=== PATIENT | male | born 1985 | race Two or more races ===

== ENCOUNTER 2024-10-06 23:27 | Inpatient (IN) | payer MEDICAID ==
[~2024-10-06] VITALS: Ht 160 cm; Wt 74.3 kg
[2024-10-07] MEDS: SODIUM CHLORIDE 0.9% 1,000 ML IV ONE
--- NOTE | 2024-10-07 00:06 | ED.PDOC ---
GI ASSESSMENT HPI Comments 39-year-old male came to ER due to abdominal pain. Patient was diagnosed to have gallstones, has been having abdominal pain for the past 1-1/2 months. Pain located at the epigastric/right upper quadrant, and associated with nausea and vomiting. Chief Complaint: Abdominal Pain Time Seen by MD: 00:05 Reviewed Notes: Nurses Notes Allergies: Coded Allergies: NO KNOWN ALLERGIES (Unverified , 10/07/24) Timing: Weeks Duration: Intermittent Prehospital treatment: None Quality: Aching Vomitus: Watery Stool: Normal Severity: Moderate Recent: None Recent Hx of: Other (Gallstones) Pain Location: Epigastric, RUQ Modifying Factors: Nothing Associated sign and symptoms: Nausea, Vomiting, Abdominal Pain Past Medical History PAST MEDICAL HISTORY: Gallstones Surgical History: Denies all surgeries Surgical History (Other): Right ankle surgery Family History Family History: Reviewed,noncontributory to illness Social History Smoker: Non-Smoker Alcohol: Denies ETOH Use Drugs: Denies Drug Use Lives In: Home Constitutional: denies: chills, diaphoresis, fatigue, fever, malaise, sweats, weakness, others EENTM: denies: blurred vision, double vision, ear bleeding, ear discharge, ear drainage, ear pain, ear ringing, eye pain, eye redness, hearing loss, mouth pain, mouth swelling, nasal discharge, nose bleeding, nose congestion, nose pain, photophobia, tearing, throat pain, throat swelling, voice changes, others Respiratory: denies: cough, hemoptysis, orthopnea, SOB at rest, shortness of breath, SOB with excertion, stridor, wheezing, others Cardiovascular: denies: chest pain, dizzy spells, diaphoresis, Dyspnea on exertion, edema, irregular heart beat, left arm pain, lightheadedness, palpitations, PND, syncope, others Gastrointestinal: reports: abdominal pain, nausea, vomiting; denies: abdomen distended, blood streaked bowels, constipated, diarrhea, dysphagia, difficulty swallowing, hematemesis, melena, poor appetite, poor fluid intake, rectal bleeding, rectal pain, others Genitourinary: denies: burning, dysuria, flank pain, frequency, hematuria, incontinence, penile discharge, penile sore, pain, testicle pain, testicle swelling, urgency, others Neurological: denies: dizziness, fainting, headache, left sided numbness, left sided weakness, numbness, paresthesia, pre-existing deficit, right sided numbness, right sided weakness, seizure, speech problems, tingling, tremors, weakness, others Musculoskeletal: denies: back pain, gout, joint pain, joint swelling, muscle pain, muscle stiffness, neck pain, others Integumetry: denies: bruises, change in color, change in hair/nails, dryness, laceration, lesions, lumps, rash, wounds, others Allergic/Immunocompromised: denies: Difficulty Healing, Frequent Infections, Hives, Itching, others Hematologic/Lymphatic: denies: anemia, blood clots, easy bleeding, easy bruising, swollen glands, others Endocrine: denies: excessive hunger, excessive sweating, excessive thirst, excessive urination, flushing, intolerance to cold, intolerance to heat, unexplained weight gain, unexplained weight loss, others Psychiatric: denies: anxiety, bipolar disorder, depression, hopeless, panic disorder, schizophrenia, sleepless, suicidal, others Physical Exam General Appearance: No Apparent Distress, Normal HEENT: Normal ENT Inspection, Pharynx Normal, TMs Normal Neck: Full Range of Motion, Non-Tender, Normal, Normal Inspection Respiratory: Chest Non-Tender, Lungs Clear, No Accessory Muscle Use, No Respiratory Distress, Normal Breath Sounds Cardiovascular: No Edema, No JVD, No Murmur, No Gallop, Normal Peripheral Pulses, Regular Rate/Rhythm Breast Exam: Deferred Gastrointestinal: Epigastric, No Organomegaly, No Pulsatile Mass, Normal Bowel Sounds, RUQ, Soft, Tenderness Genitalia: Deferred Pelvic: Deferred Rectal: Deferred Extremities: No calf tenderness, Normal capillary refill, Normal inspection, Normal range of motion, Non-tender, No pedal edema Musculoskeletal : Apperance: Normal Neurologic: Alert, information assurance analyst II-XII nml as Tested, No Motor Deficits, Normal Affect, Normal Mood, No Sensory Deficits Cerebellar Function: Normal Reflexes: Normal Skin: Dry, Normal Color, Warm Lymphatic: No Adenopathy Was a procedure done? Was a procedure done?: No GI differential Dx Differential Diagnosis: Cholangitis, Cholecystitis, Diverticular disease, Gastritis/PUD, Gastroenteritis, Pancreatitis, UTI, Urolithiasis, Food Poisoning X-Ray, Labs, Meds, VS Vital Signs Date Time Temp Pulse Resp B/P (MAP) Pulse Ox O2 Delivery O2 Flow Rate FiO2 10/06/24 23:56 98.0 77 20 130/93 (105) 99 Lab Test 10/07/24 00:17 10/06/24 23:55 Range/Units White Blood Count 15.1 H 4.4-10.8 10^3/uL Red Blood Count 4.83 4.5-5.90 10^6/uL Hemoglobin 15.9 13.5-17.5 g/dL Hematocrit 44.8 41.0-53.0 % Mean Corpuscular Volume 92.7 80.0-100.0 fL Mean Corpuscular Hemoglobin 32.9 H 28.0-32.0 pg Mean Corpuscular Hemoglobin Concent 35.5 32.0-36.0 g/dL Red Cell Distribution Width 13.0 11.8-14.3 % Platelet Count 265 140-450 10^3/uL Mean Platelet Volume 7.7 6.9-10.8 fL Neutrophils (%) (Auto) 72.4 37.0-80.0 % Lymphocytes (%) (Auto) 18.8 10.0-50.0 % Monocytes (%) (Auto) 7.5 0.0-12.0 % Eosinophils (%) (Auto) 0.5 0.0-7.0 % Basophils (%) (Auto) 0.8 0.0-2.0 % Neutrophils # (Auto) 11.0 H 1.6-8.6 10 ^3/uL Lymphocytes # (Auto) 2.8 0.4-5.4 10 ^3/uL Monocytes # (Auto) 1.1 0-1.3 10 ^3/uL Eosinophils # (Auto) 0.1 0-0.8 10 ^3/uL Basophils # (Auto) 0.1 0-0.2 10 ^3/uL Nucleated Red Blood Cells 0.0 % Sodium Level 144 136-145 mmol/L Potassium Level 3.4 L 3.5-5.1 mmol/L Chloride Level 108 H 98-107 mmol/L Carbon Dioxide Level 26 20-31 mmol/L Anion Gap 10 5-15 Blood Urea Nitrogen 26 H 9-23 mg/dL Creatinine 1.10 0.700-1.30 mg/dL Glomerular Filtration Rate Calc 86 >90 mL/min BUN/Creatinine Ratio 23.6 H 10.0-20.0 Serum Glucose 116 H 74-106 mg/dL Calcium Level 9.7 8.7-10.4 mg/dL Total Bilirubin 2.5 H 0.2-1.0 mg/dL Aspartate Amino Transferase (AST) 130 H 13-40 U/L Alanine Aminotransferase (ALT) 88 H 7-40 U/L Alkaline Phosphatase 58 46-116 U/L Total Protein 7.4 5.7-8.2 g/dL Albumin 4.5 3.2-4.8 g/dL Lipase 51 12-53 U/L Urine Color Yellow Yellow Urine Clarity Clear Clear Urine pH 7.0 5.0-9.0 Urine Specific [place] 1.032 1.001-1.035 Urine Protein Trace H Negative Urine Ketones Trace Negative Urine Blood Negative Negative /uL Urine Nitrite Negative Negative Urine Bilirubin Negative Negative Urine Urobilinogen 6 Negative mg/dL Urine Leukocyte Esterase Negative Negative /uL Urine RBC 1 0 - 3 /hpf Urine WBC <1 0 - 3 /hpf Urine Squamous Epithelial Cells Few <5 /hpf Urine Bacteria None seen None Seen /hpf Urine Mucus Few None Seen Urine Glucose Normal Normal mg/dL Current Medications Medications (Trade) Dose Ordered Sig/Billy Route Start Time Stop Time Status Last Admin Pantoprazole Sodium (Protonix) 40 mg ONCE ONCE IV 10/07/24 00:00 10/07/24 00:01 DC 10/07/24 00:59 Sodium Chloride 1,000 ml @ 1,000 mls/hr Q1H ONCE IV 10/07/24 00:00 10/07/24 00:59 DC 10/07/24 00:00 Ondansetron HCl (Zofran) 4 mg ONCE ONCE IV 10/07/24 00:00 10/07/24 00:01 DC 10/07/24 01:00 Time of 1ST Reevaluation: 00:02 Reevaluation 1ST: Unchanged Patient Education/Counseling: Diagnosis, Treatment Family Education/Counseling: No Family Present Departure 1 Departure Time of Disposition: 02:04 (Patient presented with abdominal pain that was concerning for possible appendicits, gastritis, cholecystitis, colitis, gastroenteritis, sbo, or orther possible surgical emergency. Data: 1. I ordered and reviewed the result of at least 3 labs including a CBC, BMP, and Urinalysis. 2. I independently interpreted the following tests: Ultrasound of the gallbladder is benign.Risk:This patient has a high risk of morbidity due to further diagnostic testing or treatment and may suffer from an acute abdominal process disorder. Workup reveals intractable abdominal pain concerning for possible gastritis. We will admit patient for further workup. and patient should be admitted for further workup. and possible expert consultation. ) Impression: Primary Impression: Intractable abdominal pain Disposition: ADMITTED INPATIENT Admit to: Med Surg Condition: Serious Critical Care Note Critical Care Time?: Yes Critical care comment: Intractable abdominal pain Authorized and Performed by: Sena Wilson MD Total critical care time: Approximately 36 minutes Due to a high probability of clinically significant, life threatening deterioration, the patient required my highest level of preparedness to intervene emergently and I personally spent this critical care time directly and personally managing the patient. This critical care time included obtaining a history; examining the patient; pulse oximetry; ordering and review of studies; arranging urgent treatment with development of a management plan; evaluation of patient's response to treatment; frequent reassessment; and, discussions with other providers. This critical care time was performed to assess and manage the high probability of imminent, life-threatening deterioration that could result in multi-organ failure. It was exclusive of separately billable procedures and treating other patients and teaching time. Please see my other sections and the rest of the note for further information on patient assessment and treatment. Stability Stability form required: No Heart Score Heart Score: Heart Score Response (Comments) Value History N/A 0 EKG N/A 0 Age N/A 0 Risk Factors N/A 0 Troponin N/A 0 Total 0 I personally scribed for SENA WILSON MD ([email or web address]) on 10/07/24 at 00:06. Electronically submitted by Hang Sommer ([email or web address]). SENA WILSON MD Oct 07, 2024 00:06
[2024-10-07 00:08] LABS: Urine Bacteria None Seen /hpf (None Seen)
[2024-10-07 00:21] LABS: Urine Blood Negative /uL (Negative); Urine Clarity Clear (Clear); Urine Color Yellow (Yellow); Urine Mucus FEW (None Seen); Urine Protein, UAD TRACE (Negative); Urine Specific Gravity 1.032 (1.001-1.035); Urine Urobilinogen 6 mg/dL (Negative); Urine WBC <1 /hpf (0 - 3)
[2024-10-07 00:30] LABS: Basophils # (auto) 0.1 10 ^3/uL (0-0.2); Basophils % (auto) 0.8 % (0.0-2.0); Eosinophils # (auto) 0.1 10 ^3/uL (0-0.8); Eosinophils % (auto) 0.5 % (0.0-7.0); Hematocrit 44.8 % (41.0-53.0); Hemoglobin 15.9 g/dL (13.5-17.5); Lymphocytes # (auto) 2.8 10 ^3/uL (0.4-5.4); Lymphocytes % (auto) 18.8 % (10.0-50.0); Mean Corpuscular Hemoglobin 32.9 pg (28.0-32.0); Mean Corpuscular Hgb Conc. 35.5 g/dL (32.0-36.0); Mean Corpuscular Volume 92.7 fL (80.0-100.0); Monocytes # (auto) 1.1 10 ^3/uL (0-1.3); Monocytes % (auto) 7.5 % (0.0-12.0); Neutrophils % (auto) 72.4 % (37.0-80.0); Platelet Count (auto) 265 10^3/uL (140-450); Red Blood Cells 4.83 10^6/uL (4.5-5.90); White Blood Cell 15.1 10^3/uL (4.4-10.8)
[2024-10-07 00:46] LABS: Alanine Aminotransferase 88 U/L (7-40); Albumin 4.5 g/dL (3.2-4.8); Alkaline Phosphatase 58 U/L (46-116); Anion Gap 10 (5-15); Aspartate Aminotransferase 130 U/L (13-40); BUN/Creatinine Ratio 23.6 (10.0-20.0); Blood Urea Nitrogen 26 mg/dL (9-23); Calcium 9.7 mg/dL (8.7-10.4); Carbon Dioxide 26 mmol/L (20-31); Chloride 108 mmol/L (98-107); Glucose 116 mg/dL (74-106); Lipase 51 U/L (12-53); Potassium 3.4 mmol/L (3.5-5.1); Sodium 144 mmol/L (136-145)
[2024-10-07 00:47] LABS: Bilirubin, Total 2.5 mg/dL (0.2-1.0); Total Protein 7.4 g/dL (5.7-8.2)
[2024-10-07] MEDS: PANTOPRAZOLE 40 MG/10 ML VIAL INJ IV ONE (00:59)
[2024-10-07] MEDS: ONDANSETRON HCL 4 MG/2 ML VIAL IV ONE (01:00)
--- NOTE | 2024-10-07 01:10 | DVH ---
EXAM: XY CHEST TWO VIEWS ROUTINE CLINICAL HISTORY: ruq abdominal pain TECHNIQUE: PA and lateral views of the chest WID: COMPARISON: None FINDINGS: Lines and tubes: None. There are tiny radiopaque densities projecting over the right lower chest and right upper abdomen which may be BB fragments Chest: The heart size and pulmonary vasculature is within normal limits. No pleural effusion, pneumothorax, or consolidation. The osseous structures are grossly intact. IMPRESSION: No acute cardiopulmonary abnormality.
--- NOTE | 2024-10-07 01:30 | DVH ---
ABDOMINAL ULTRASOUND CLINICAL HISTORY: ruq pain TECHNIQUE: Multiple grayscale and color Doppler ultrasound images were obtained of the abdomen. WID: COMPARISON: None FINDINGS: Liver and Biliary System: Borderline Increased echogenicity, normal size measuring 13.9 cm. No foca l hepatic observations. No intrahepatic bile duct dilatation. The common duct is not visualized . Th e gallbladder is normal in caliber without cholelithiasis or wall thickening.. Pancreas: Not well visualized due to overlying bowel gas Kidneys: The right kidney is 9.1 cm . No hydronephrosis, increased echogenicity, shadowing stone, o r focal lesion. IMPRESSION: 1. Unremarkable appearance of the gallbladder. 2. Borderline hepatic steatosis
[2024-10-07] MEDS: MORPHINE SULFATE 4 MG/ML SYR/VIAL IV ONE ×2 (02:49→04:15)
[2024-10-07 05:44] VITALS: BP 119/77; PULSE 56; RESP 18; TEMP 97.9; O2SAT 99
[2024-10-07] MEDS ORDERED: IBUPROFEN 600 MG TAB PO PRN (06:15)
[2024-10-07] MEDS ORDERED: DOCUSATE SOD 100 MG CAP PO PRN (06:15)
[2024-10-07] MEDS ORDERED: ONDANSETRON HCL 4 MG/2 ML VIAL IV PRN (06:15)
[2024-10-07] MEDS ORDERED: MORPHINE SULFATE INJ 2 MG/ml SYRG IV PRN ×2 (06:15→06:45)
--- NOTE | 2024-10-07 06:41 | DVHHP2 ---
History of Present Illness Reason for Visit: Acute abdominal pain History of Present Illness The patient is a 39-year-old male with past medical history of gallstones who presented to [facility] ED with complaint of acute abdominal pain. Patient reports symptoms progressively get worse with localized epigastric abdo saeed pain, right upper quadrant pain, associated nausea, vomiting, getting worse today that prompted this visit. Patient reports he has been diagnosed to have gallstones, has been having abdominal pain for the past 1-1/2 months. Patient was seen and evaluated in the ED, laboratory data shows WBC 15.1, platelets 265, sodium 144, potassium 3.4, BUN 26, creatinine 1.10, glucose 116, total bilirubin 2.5, AST 130, ALT 88, blood pressure 119/77, heart rate 70, temperature 97.9 F, O2 saturation 99% on room air. Gallbladder ultrasound revealing unremarkable appearance of the gallbladder; borderline hepatic steatosis. Please see medication orders section in the computer. On my assessment, patient denied chest pain, no headache, no dizziness, no diaphore sis, no shortness of breath, no abdominal pain, nausea or vomiting at this moment, no fever, no chills. No other modifying factor or other associated signs and symptoms noted. Patient was admitted for further evaluation and medical management. Past Medical History Gallstones Past Surgical History Right ankle surgery Family History Reviewed, noncontributory to the management of this case. Past Social History The patient lives at home, denies smoking, alcohol or illicit drugs abuse. Review of Systems Constitutional: No: Fever, Chills, Sweats, Weakness, Malaise, Other Eyes: No: Pain, Vision change, Conjunctivae inflammation, Eyelid inflammation, Other, Redness ENT: No: Ear pain, Ear discharge, Nose pain, Nose discharge, Nose congestion, Mouth pain, Mouth swelling, Throat pain, Throat swelling, Other Respiratory: No: Cough, Dry, Shortness of breath, SOB with excertion, Wheezing, Hemoptysis, Pleuritic Pain, Sputum, Wheezing, Other Cardiovascular: No: Chest Pain, Palpitations, Orthopnea, Paroxysmal Noc. Dyspnea, Edema, Lt Headedness, Other Gastrointestinal: Nausea, Vomiting, Abdominal Pain; No: Diarrhea, Constipation, Melena, Hematochezia, Other Genitourinary: No Dysuria, No Frequency, No Incontinence, No Hematuria, No Retention, No Other Musculoskeletal: No: other, neck pain, shoulder pain, arm pain, back pain, hand pain, leg pain, foot pain Skin: No: Rash, Lesions, Jaundice, Bruising, Other Neurological: No: Weakness, Numbness, Incoordination, Change in speech, Confusion, Seizures, Other Allergies: Coded Allergies: NO KNOWN ALLERGIES (Unverified , 10/07/24) Medications Current Medications Medications Dose Ordered Sig/Billy Route Start Time Stop Time Status Last Admin Dose Admin Pantoprazole Sodium 40 mg DAILY IV 10/07/24 10:00 Ceftriaxone Sodium 50 ml @ 100 mls/hr DAILY@0600 IV 10/08/24 06:00 Ibuprofen 600 mg Q6HP PRN PO 10/07/24 06:15 Sodium Chloride 10 ml Q8HR IV 10/07/24 14:00 Acetaminophen/ Hydrocodone Bitart 1 tab Q4HP PRN PO 10/07/24 06:15 Ondansetron HCl 4 mg Q4HP PRN IV 10/07/24 06:15 Docusate Sodium 100 mg BIDPRN PRN PO 10/07/24 06:15 Morphine Sulfate 2 mg Q4HPRN PRN IV 10/07/24 06:15 Exam Vital Signs Vital Signs Date Time Temp Pulse Resp B/P (MAP) Pulse Ox O2 Delivery O2 Flow Rate FiO2 10/07/24 05:44 97.9 56 18 119/77 (91) 99 97.9 10/07/24 02:40 Room Air General Appearance: Alert, Oriented X3, Cooperative, No acute distress HEENT: Atraumatic, PERRLA, EOMI, Mucous membr. moist/pink Respiratory: Clear to auscultation, Normal air movement Cardiovascular: Regular rate, Normal S1, Normal S2, No murmurs Abdominal: Normal bowel sounds, Soft, No hepatospenomegaly, No masses, Other (Reports tenderness) Extremities: No clubbing, No cyanosis, No edema, Normal pulses, No tenderness/swelling Skin: No rashes, No breakdown, No significant lesion Neuro: Normal gait, Normal speech, Strength at 5/5 X4 ext, Normal tone, Sensation intact, Cranial nerves 3-12 NL, Reflexes 2+ Psych/Mental Status: Mental status NL, Mood NL Labs/Xrays Labs Test 10/07/24 00:17 10/06/24 23:55 Range/Units White Blood Count 15.1 H 4.4-10.8 10^3/uL Red Blood Count 4.83 4.5-5.90 10^6/uL Hemoglobin 15.9 13.5-17.5 g/dL Hematocrit 44.8 41.0-53.0 % Mean Corpuscular Volume 92.7 80.0-100.0 fL Mean Corpuscular Hemoglobin 32.9 H 28.0-32.0 pg Mean Corpuscular Hemoglobin Concent 35.5 32.0-36.0 g/dL Red Cell Distribution Width 13.0 11.8-14.3 % Platelet Count 265 140-450 10^3/uL Mean Platelet Volume 7.7 6.9-10.8 fL Neutrophils (%) (Auto) 72.4 37.0-80.0 % Lymphocytes (%) (Auto) 18.8 10.0-50.0 % Monocytes (%) (Auto) 7.5 0.0-12.0 % Eosinophils (%) (Auto) 0.5 0.0-7.0 % Basophils (%) (Auto) 0.8 0.0-2.0 % Neutrophils # (Auto) 11.0 H 1.6-8.6 10 ^3/uL Lymphocytes # (Auto) 2.8 0.4-5.4 10 ^3/uL Monocytes # (Auto) 1.1 0-1.3 10 ^3/uL Eosinophils # (Auto) 0.1 0-0.8 10 ^3/uL Basophils # (Auto) 0.1 0-0.2 10 ^3/uL Nucleated Red Blood Cells 0.0 % Sodium Level 144 136-145 mmol/L Potassium Level 3.4 L 3.5-5.1 mmol/L Chloride Level 108 H 98-107 mmol/L Carbon Dioxide Level 26 20-31 mmol/L Anion Gap 10 5-15 Blood Urea Nitrogen 26 H 9-23 mg/dL Creatinine 1.10 0.700-1.30 mg/dL Glomerular Filtration Rate Calc 86 >90 mL/min BUN/Creatinine Ratio 23.6 H 10.0-20.0 Serum Glucose 116 H 74-106 mg/dL Calcium Level 9.7 8.7-10.4 mg/dL Total Bilirubin 2.5 H 0.2-1.0 mg/dL Aspartate Amino Transferase (AST) 130 H 13-40 U/L Alanine Aminotransferase (ALT) 88 H 7-40 U/L Alkaline Phosphatase 58 46-116 U/L Total Protein 7.4 5.7-8.2 g/dL Albumin 4.5 3.2-4.8 g/dL Lipase 51 12-53 U/L Urine Color Yellow Yellow Urine Clarity Clear Clear Urine pH 7.0 5.0-9.0 Urine Specific [place] 1.032 1.001-1.035 Urine Protein Trace H Negative Urine Ketones Trace Negative Urine Blood Negative Negative /uL Urine Nitrite Negative Negative Urine Bilirubin Negative Negative Urine Urobilinogen 6 Negative mg/dL Urine Leukocyte Esterase Negative Negative /uL Urine RBC 1 0 - 3 /hpf Urine WBC <1 0 - 3 /hpf Urine Squamous Epithelial Cells Few <5 /hpf Urine Bacteria None seen None Seen /hpf Urine Mucus Few None Seen Urine Glucose Normal Normal mg/dL PATIENT: MANOLO BRIGHTACCT: [id number] UNIT: [id number] : 1985 LOC: ER ROOM / BED: / AGE / SEX: 39 / M ADM STATUS: REG ER SERVICE [id number] ORDERING PHYSICIAN: SENA RIVERA MD PROCEDURE(s): GBUS - GALLBLADDER REASON: ruq pain ORDER NUMBER(s): [id number], ACCESSION NUMBER(s): [id number] ABDOMINAL ULTRASOUND CLINICAL HISTORY: ruq pain TECHNIQUE: Multiple grayscale and color Doppler ultrasound images were obtained of the abdomen. WID: COMPARISON: None FINDINGS: Liver and Biliary System: Borderline Increased echogenicity, normal size measuring 13.9 cm. No focal hepatic observations. No intrahepatic bile duct dilatation. The common duct is not visualized. The gallbladder is normal in caliber without cholelithiasis or wall thickening.. Pancreas: Not well visualized due to overlying bowel gas Kidneys: The right kidney is 9.1 cm. No hydronephrosis, increased echogenicity, shadowing stone, or focal lesion. IMPRESSION: 1. Unremarkable appearance of the gallbladder. 2. Borderline hepatic steatosis ORDERING PHYSICIAN: SENA RIVERA MD PROCEDURE(s): CXR2 - CHEST TWO VIEWS ROUTINE REASON: ruq abdominal pain ORDER NUMBER(s): [id number], ACCESSION NUMBER(s): [id number] EXAM: XY CHEST TWO VIEWS ROUTINE CLINICAL HISTORY: ruq abdominal pain TECHNIQUE: PA and lateral views of the chest WID: COMPARISON: None FINDINGS: Lines and tubes: None. There are tiny radiopaque densities projecting over the right lower chest and right upper abdomen which may be BB fragments Chest: The heart size and pulmonary vasculature is within normal limits. No pleural effusion, pneumothorax, or consolidation. The osseous structures are grossly intact. IMPRESSION: No acute cardiopulmonary abnormality. Assessment/Plan Assessment/Plan Intractable abdominal pain Hypokalemia Leukocytosis, unspecified Elevated liver enzymes Plan 1. Admit to med surge unit 2. Breathing treatment 3. Pain control management 4. IV antibiotic management 5. Management of fluids and electrolytes 6. Consultation for GI/hospitalist 7. Diagnostic test gallbladder ultrasound 8. DVT prophylaxis on SCDs 9. Repeat labs CBC, CMP in a.m. 10. Home medication reviewed and reconciled 11. Continue with current medical management 12. Treatment plan discussed with patient and RN. Patient verbalized understanding. Plan discussed with: Patient, Other (RN) My Orders Orders - REINA RM DNP Procedure Category Date Status Time Complete Blood Count LAB 10/07/24 Logged 06:01 Comprehensive LAB 10/07/24 Logged Metabolic Panel 06:01 Pantoprazole PHA 10/07/24 In Process (Protonix) 10:00 Blood Culture SHAILA 10/07/24 Logged 06:01 Ceftriaxone 1gm/50ml PHA 10/07/24 In Process D5w (Rocephin) 06:15 Ibuprofen Tablet PHA 10/07/24 In Process (Motrin Tablet) 06:15 Allergies KIRA 10/07/24 In Process 06:01 Code Status CODE 10/07/24 Transmitted 06:01 Sodium Chloride Lock PHA 10/07/24 In Process (Saline Lock Ns) 14:00 Oxygen Per Hour RT 10/07/24 Transmitted 06:01 Hydrocodone-Acet PHA 10/07/24 In Process 5/325mg Tab ([place] 06:15 Ondansetron Hcl PHA 10/07/24 In Process (Zofran) 06:15 Docusate Sodium PHA 10/07/24 In Process Capsule (Colace 06:15 Complete Blood Count LAB 10/08/24 Verified 04:00 Comprehensive LAB 10/08/24 Verified Metabolic Panel 04:00 Condition: Fair KIRA 10/07/24 In Process 06:01 Clear Liq Diet DIET 10/07/24 Transmitted Breakfast Bedrest With Bathroom KIRA 10/07/24 In Process Privileg 06:01 Morphine Sulfate [facility] 10/07/24 In Process Injection 06:15 Sequential [facility] 10/07/24 In Process Compression Device Ceftriaxone 1gm/50ml [facility] 10/08/24 In Process D5w (Rocephin) 06:00 Problem List: (1) Intractable abdominal pain (2) Hypokalemia (3) Leukocytosis, unspecified (4) Elevated liver enzymes Date of Service: Oct 07, 2024 Billing Provider: REINA RM DNP Common Visit Codes: [id number] INP/OBS CARE (HIGH) REINA RM DNP Oct 07, 2024 06:41
[2024-10-07] MEDS ORDERED: NITROGLYCERIN 0.4 MG SL TAB SL PRN (06:45)
[2024-10-07 06:55] LABS: Basophils # (auto) 0 10 ^3/uL (0-0.2); Basophils % (auto) 0.1 % (0.0-2.0); Eosinophils # (auto) 0 10 ^3/uL (0-0.8); Hematocrit 43.9 % (41.0-53.0); Hemoglobin 15.4 g/dL (13.5-17.5); Lymphocytes # (auto) 0.6 10 ^3/uL (0.4-5.4); Lymphocytes % (auto) 6.2 % (10.0-50.0); Mean Corpuscular Hemoglobin 33.3 pg (28.0-32.0); Monocytes # (auto) 0.6 10 ^3/uL (0-1.3); Monocytes % (auto) 6.6 % (0.0-12.0); Neutrophils # (auto) 8.5 10 ^3/uL (1.6-8.6); Neutrophils % (auto) 87.1 % (37.0-80.0); Platelet Count (auto) 256 10^3/uL (140-450); Red Blood Cells 4.63 10^6/uL (4.5-5.90); Red Cell Distribution Width 13.2 % (11.8-14.3); White Blood Cell 9.7 10^3/uL (4.4-10.8)
[2024-10-07] MEDS: cefTRIAXone 1GM/50ML D5W 50 ML IV ONE (06:59)
[2024-10-07] MEDS: POTASSIUM CHL 20 Meq TABLET PO ONE (06:59)
[2024-10-07 07:08] LABS: Alanine Aminotransferase 366 U/L (7-40); Albumin 4.4 g/dL (3.2-4.8); Alkaline Phosphatase 65 U/L (46-116); Anion Gap 11 (5-15); Aspartate Aminotransferase 392 U/L (13-40); Bilirubin, Total 3.2 mg/dL (0.2-1.0); Blood Urea Nitrogen 25 mg/dL (9-23); Calcium 9.4 mg/dL (8.7-10.4); Carbon Dioxide 24 mmol/L (20-31); Chloride 110 mmol/L (98-107); Glucose 141 mg/dL (74-106); Potassium 3.8 mmol/L (3.5-5.1); Sodium 145 mmol/L (136-145); Total Protein 7.4 g/dL (5.7-8.2)
[2024-10-07 08:02] VITALS: BP 105/59; PULSE 59; RESP 16; TEMP 98.2; O2SAT 59
[2024-10-07] MEDS: PANTOPRAZOLE 40 MG/10 ML VIAL INJ IV SCH (10:00)
[2024-10-07] MEDS: HYDROcodone-ACET 5/325MG TAB PO PRN (11:18)
[2024-10-07 12:35] VITALS: BP 105/59; PULSE 63; TEMP 98.3; O2SAT 100
[2024-10-07] MEDS: SODIUM CHLOR 0.9% PF (SALINE LOCK) 10ML VIAL/SYR IV SCH (13:11)
--- NOTE | 2024-10-07 16:20 | DVHPN2 ---
Subjective Patient continues to complain of epigastric and right upper quadrant pain. Reviewed: Care Plan, H&P, Labs, Medications Changes from previous H/P or p: No Changes General: Per HPI Eyes: No Pain, No Vision change, No Conjunctivae inflammation, No Eyelid inflammation, No Other, No Redness ENT: No Ear pain, No Ear discharge, No Nose pain, No Nose discharge, No Nose congestion, No Mouth pain, No Mouth swelling, No Throat pain, No Throat swelling, No Other Cardiovascular: No Chest Pain, No Palpitations, No Orthopnea, No Paroxysmal Noc. Dyspnea, No Edema, No Lt Headedness, No Other Respiratory: No Cough, No Dry, No Shortness of breath, No SOB with excertion, No Wheezing, No Hemoptysis, No Pleuritic Pain, No Sputum, No Other Gastrointestinal: Nausea, Vomiting, Abdominal Pain; No Diarrhea, No Constipation, No Melena, No Hematochezia, No Other Genitourinary: No Dysuria, No Frequency, No Incontinence, No Hematuria, No Retention, No Other Musculoskeletal: No other, No neck pain, No shoulder pain, No arm pain, No back pain, No hand pain, No leg pain, No foot pain Skin: No Rash, No Lesions, No Jaundice, No Bruising, No Other Objective Vitals Vital Signs Date Time Temp Pulse Resp B/P (MAP) Pulse Ox O2 Delivery O2 Flow Rate FiO2 10/07/24 12:35 98.3 63 105/59 (74) 100 98.3 10/07/24 08:02 16 10/07/24 02:40 Room Air Intake/Output Intake and Output 10/07/24 07:00 Intake Total 1000 ml Balance 1000 ml Intake IV Total 1000 ml General Appearance: Alert, Oriented X3, Cooperative, mild distress HEENT: Atraumatic, PERRLA Lungs: Clear to auscultation, Normal air movement Cardiovascular: Normal S1, Normal S2 Abdomen: Normal bowel sounds, Soft, No tenderness Genitourinary: No Apparent Abnormalities Musculoskeletal: Normal sensory function, Normal motor function Extremities: No clubbing, No cyanosis Neuro: Normal gait, Normal speech Psych/Mental Status: Mental status NL, Mood NL Medications Current Medications Medications Dose Ordered Sig/Blily Route Start Time Stop Time Status Last Admin Dose Admin Pantoprazole Sodium 40 mg DAILY IV 10/07/24 10:00 10/07/24 10:00 40 MG Ceftriaxone Sodium 50 ml @ 100 mls/hr DAILY@0600 IV 10/08/24 06:00 Ibuprofen 600 mg Q6HP PRN PO 10/07/24 06:15 Sodium Chloride 10 ml Q8HR IV 10/07/24 14:00 10/07/24 13:11 10 ML Acetaminophen/ Hydrocodone Bitart 1 tab Q4HP PRN PO 10/07/24 06:15 10/07/24 11:18 1 TAB Ondansetron HCl 4 mg Q4HP PRN IV 10/07/24 06:15 Docusate Sodium 100 mg BIDPRN PRN PO 10/07/24 06:15 Morphine Sulfate 2 mg Q4HPRN PRN IV 10/07/24 06:15 Nitroglycerin 0.4 mg Q5MINP PRN SL 10/07/24 06:45 Morphine Sulfate 2 mg Q30M PRN IV 10/07/24 06:45 Laboratory Results Laboratory Tests 10/07/24 06:23 Chemistry Test 10/07/24 00:17 10/07/24 06:23 Albumin 4.5 g/dL (3.2-4.8) 4.4 g/dL (3.2-4.8) Calcium Level 9.7 mg/dL (8.7-10.4) 9.4 mg/dL (8.7-10.4) Total Protein 7.4 g/dL (5.7-8.2) 7.4 g/dL (5.7-8.2) Lipid panel Test 10/07/24 00:17 Lipase 51 U/L (12-53) LFT Test 10/07/24 00:17 10/07/24 06:23 Alanine Aminotransferase (ALT) 88 U/L (7-40) H 366 U/L (7-40) H Alkaline Phosphatase 58 U/L (46-116) 65 U/L (46-116) Aspartate Amino Transferase (AST) 130 U/L (13-40) H 392 U/L (13-40) H Total Bilirubin 2.5 mg/dL (0.2-1.0) H 3.2 mg/dL (0.2-1.0) H Urinalysis Test 10/06/24 23:55 Urine Color Yellow (Yellow) Urine Clarity Clear (Clear) Urine pH 7.0 (5.0-9.0) Urine Specific [place] 1.032 (1.001-1.035) Urine Protein Trace (Negative) H Urine Ketones Trace (Negative) Urine Blood Negative /uL (Negative) Urine Nitrite Negative (Negative) Urine Bilirubin Negative (Negative) Urine Urobilinogen 6 mg/dL (Negative) Urine Leukocyte Esterase Negative /uL (Negative) Urine RBC 1 /hpf (0 - 3) Urine WBC <1 /hpf (0 - 3) Urine Squamous Epithelial Cells Few /hpf (<5) Urine Bacteria None seen /hpf (None Seen) Urine Mucus Few (None Seen) Urine Glucose Normal mg/dL (Normal) Labs and/or images reviewed: Labs reviewed by me, Image(s) reviewed by me Assessment/Plan Assessment/Plan Impression: -rule out choledocholithiasis -transaminitis -patient reports history of cholelithiasis -leukocytosis, probable sirs Plan: -continue antibiotic therapy -MRCP -repeat labs in a.m. -pain management -continue clear liquid diet -discussed plan of care with the patient who is agreeable for MRI. Further course of care per findings. Total time spent with patient discussing and formulating plan of care: 35 minutes. This medical document was created using an electronic medical record system with [employer] dictation system. Although this document has been carefully reviewed, there may still be some phonetic and typographical errors. These areas are purely typographical due to imperfections of the software programs, and do not reflect any compromise in the patient's medical care. Plan discussed with: Patient, Other (RN) My Orders Orders - PATITO NAILS NP Procedure Category Date Status Time Mrcp Mri MRI 10/07/24 Logged 14:54 Date of Service: Oct 07, 2024 Billing Provider: PATITO NAILS NP Common Visit Codes: [id number] INP/OBS CARE(HIGH) PATITO NAILS NP Oct 07, 2024 16:20
[2024-10-07 16:43] VITALS: BP 120/77; PULSE 61; RESP 18; TEMP 98.1; O2SAT 99
[2024-10-07] MEDS: IOHEXOL 300 MG/ML 100ML BOTTLE IJ ONE (16:54)
--- NOTE | 2024-10-07 17:41 | DVH ---
Exam: CT CT AB PEL WITH IV CON ONLY History: Rule out Choledocholithiasis Comparison Study: None Technique: Multidetector spiral CT of the abdomen and pelvis was performed from lung bases to pubic symphysis. Imaging was performed without IV contrast. Axial, coronal and sagittal multiplanar reform ats were obtained from the axial data set by the technologist. Radiation dose : Abdomen/Pelvis: CTDIvol 10 mGy, DLP 565.18 mGy*cm. Findings: Evaluation of solid organs is limited due to lack of intravenous contrast use. Lung Bases: No acute or significant lung base finding. Normal heart size. No pleural or pericardial effusion. Liver: The liver is normal in size. No focal lesions. Gallbladder and biliary Tree: Suspect small calculi in the neck of the gallbladder. No intrahepatic o r extrahepatic biliary dilation. No definite choledocholithiasis. Spleen: Unremarkable Pancreas: The pancreas is grossly normal in appearance. Adrenal Glands: Unremarkable Kidneys: Subcentimeter right renal cyst. No hydronephrosis. Bladder: Grossly unremarkable for degree of distention. Bowel: The stomach is grossly normal in appearance. Few mildly prominent loops of small bowel proxima lly. The appendix is not visualized; however, no secondary findings of acute appendicitis identified . Ascites: Absent Lymphadenopathy: No mesenteric, retroperitoneal or periportal lymphadenopathy. Abdominal wall and Mesentery: Unremarkable. Vasculature: The visualized abdominal aorta is normal in size and caliber. Evaluation of abdominal a nd pelvic vessels is limited due to lack of intravenous contrast. Pelvic Organs: Unremarkable Musculoskeletal: No aggressive focal bony lesions, acute fractures or dislocation. IMPRESSION: 1. Suspect small calculi in the gallbladder. No evidence of choledocholithiasis. Mildly prominent loo ps of small bowel proximally could represent enteritis or ileus. Clinical correlation and continued follow-up is recommended. Subcentimeter right renal cyst. Radiation optimization: All CT scans at this facility use at least one of these dose optimization karissa hniques: Automated exposure control mA and/or kV adjustment per patient size (includes targeted exams where dose is matched to clinical indication) or iterative reconstruction. HS:Y
[2024-10-08] VITALS (8 sets, daily range): BP systolic 102–116; BP diastolic 63–80; PULSE 56–73; RESP 12–18; TEMP 97.9–98.2; O2SAT 97–98
[2024-10-08] MEDS: cefTRIAXone 1GM/50ML D5W 50 ML IV SCH (05:46)
[2024-10-08 06:41] LABS: Basophils # (auto) 0 10 ^3/uL (0-0.2); Basophils % (auto) 0.8 % (0.0-2.0); Eosinophils # (auto) 0.1 10 ^3/uL (0-0.8); Eosinophils % (auto) 1.3 % (0.0-7.0); Hematocrit 40.2 % (41.0-53.0); Hemoglobin 14.4 g/dL (13.5-17.5); Lymphocytes # (auto) 2.5 10 ^3/uL (0.4-5.4); Lymphocytes % (auto) 46.7 % (10.0-50.0); Mean Corpuscular Hemoglobin 33.8 pg (28.0-32.0); Mean Corpuscular Hgb Conc. 35.9 g/dL (32.0-36.0); Mean Corpuscular Volume 94.2 fL (80.0-100.0); Monocytes # (auto) 0.5 10 ^3/uL (0-1.3); Monocytes % (auto) 9.5 % (0.0-12.0); Neutrophils # (auto) 2.2 10 ^3/uL (1.6-8.6); Neutrophils % (auto) 41.7 % (37.0-80.0); Nucleated Red Blood Cells % 0.1 %; Platelet Count (auto) 236 10^3/uL (140-450); Red Blood Cells 4.27 10^6/uL (4.5-5.90); Red Cell Distribution Width 13.3 % (11.8-14.3); White Blood Cell 5.3 10^3/uL (4.4-10.8)
[2024-10-08 06:56] LABS: Alanine Aminotransferase 252 U/L (7-40); Alkaline Phosphatase 62 U/L (46-116); Anion Gap 7 (5-15); Blood Urea Nitrogen 12 mg/dL (9-23); Calcium 9.3 mg/dL (8.7-10.4); Carbon Dioxide 27 mmol/L (20-31); Chloride 108 mmol/L (98-107); Glucose 105 mg/dL (74-106); Potassium 3.8 mmol/L (3.5-5.1); Sodium 142 mmol/L (136-145)
[2024-10-08 06:58] LABS: Aspartate Aminotransferase 88 U/L (13-40); Bilirubin, Total 3.2 mg/dL (0.2-1.0); Total Protein 6.7 g/dL (5.7-8.2)
--- NOTE | 2024-10-08 13:48 | DVHPN2 ---
Subjective Patient continues to complain of epigastric and right upper quadrant pain. Reviewed: Care Plan, H&P, Labs, Medications Changes from previous H/P or p: No Changes General: Per HPI Eyes: No Pain, No Vision change, No Conjunctivae inflammation, No Eyelid inflammation, No Other, No Redness ENT: No Ear pain, No Ear discharge, No Nose pain, No Nose discharge, No Nose congestion, No Mouth pain, No Mouth swelling, No Throat pain, No Throat swelling, No Other Cardiovascular: No Chest Pain, No Palpitations, No Orthopnea, No Paroxysmal Noc. Dyspnea, No Edema, No Lt Headedness, No Other Respiratory: No Cough, No Dry, No Shortness of breath, No SOB with excertion, No Wheezing, No Hemoptysis, No Pleuritic Pain, No Sputum, No Other Gastrointestinal: Nausea, Vomiting, Abdominal Pain; No Diarrhea, No Constipation, No Melena, No Hematochezia, No Other Genitourinary: No Dysuria, No Frequency, No Incontinence, No Hematuria, No Retention, No Other Musculoskeletal: No other, No neck pain, No shoulder pain, No arm pain, No back pain, No hand pain, No leg pain, No foot pain Skin: No Rash, No Lesions, No Jaundice, No Bruising, No Other Objective Vitals Vital Signs Date Time Temp Pulse Resp B/P (MAP) Pulse Ox O2 Delivery O2 Flow Rate FiO2 10/08/24 12:26 98.1 57 14 115/76 (89) 98 98.1 10/08/24 01:48 Room Air* 0 21 Intake/Output Intake and Output 10/08/24 07:00 # Voids 2 General Appearance: Alert, Oriented X3, Cooperative, mild distress HEENT: Atraumatic, PERRLA Lungs: Clear to auscultation, Normal air movement Cardiovascular: Normal S1, Normal S2 Abdomen: Normal bowel sounds, Soft, No tenderness Genitourinary: No Apparent Abnormalities Musculoskeletal: Normal sensory function, Normal motor function Extremities: No clubbing, No cyanosis Neuro: Normal gait, Normal speech Psych/Mental Status: Mental status NL, Mood NL Medications Current Medications Medications Dose Ordered Sig/Billy Route Start Time Stop Time Status Last Admin Dose Admin Pantoprazole Sodium 40 mg DAILY IV 10/07/24 10:00 10/08/24 09:35 40 MG Ceftriaxone Sodium 50 ml @ 100 mls/hr DAILY@0600 IV 10/08/24 06:00 10/08/24 05:46 100 MLS/HR Ibuprofen 600 mg Q6HP PRN PO 10/07/24 06:15 Sodium Chloride 10 ml Q8HR IV 10/07/24 14:00 10/08/24 05:44 10 ML Acetaminophen/ Hydrocodone Bitart 1 tab Q4HP PRN PO 10/07/24 06:15 10/08/24 09:56 1 TAB Ondansetron HCl 4 mg Q4HP PRN IV 10/07/24 06:15 Docusate Sodium 100 mg BIDPRN PRN PO 10/07/24 06:15 Morphine Sulfate 2 mg Q4HPRN PRN IV 10/07/24 06:15 Nitroglycerin 0.4 mg Q5MINP PRN SL 10/07/24 06:45 Morphine Sulfate 2 mg Q30M PRN IV 10/07/24 06:45 Laboratory Results Laboratory Tests 10/08/24 06:08 Chemistry Test 10/08/24 06:08 Albumin 4.0 g/dL (3.2-4.8) Calcium Level 9.3 mg/dL (8.7-10.4) Total Protein 6.7 g/dL (5.7-8.2) LFT Test 10/08/24 06:08 Alanine Aminotransferase (ALT) 252 U/L (7-40) H Alkaline Phosphatase 62 U/L (46-116) Aspartate Amino Transferase (AST) 88 U/L (13-40) H Total Bilirubin 3.2 mg/dL (0.2-1.0) H Urinalysis Test 10/06/24 23:55 Urine Color Yellow (Yellow) Urine Clarity Clear (Clear) Urine pH 7.0 (5.0-9.0) Urine Specific [place] 1.032 (1.001-1.035) Urine Protein Trace (Negative) H Urine Ketones Trace (Negative) Urine Blood Negative /uL (Negative) Urine Nitrite Negative (Negative) Urine Bilirubin Negative (Negative) Urine Urobilinogen 6 mg/dL (Negative) Urine Leukocyte Esterase Negative /uL (Negative) Urine RBC 1 /hpf (0 - 3) Urine WBC <1 /hpf (0 - 3) Urine Squamous Epithelial Cells Few /hpf (<5) Urine Bacteria None seen /hpf (None Seen) Urine Mucus Few (None Seen) Urine Glucose Normal mg/dL (Normal) Microbiology Microbiology Date/Time Source Procedure Growth Status 10/07/24 06:23 Blood Blood Culture - Preliminary NO GROWTH AFTER 24 HOURS OF INCUBATION. Resulted Labs and/or images reviewed: Labs reviewed by me, Image(s) reviewed by me Assessment/Plan Assessment/Plan Impression: -rule out choledocholithiasis -transaminitis -patient reports history of cholelithiasis -leukocytosis, probable sirs Plan: -patient with metal shrapnel to right thorax. Unable to MRI. CT scan of the abdomen and pelvis performed. Questionable enteritis/ileus. Patient was tolerating clear liquids without any nausea or vomiting. WBC improved. -GI consultation -antibiotic therapy: Add Flagyl, continue Rocephin -check inflammatory markers for inflammatory bowel disease -pain management -continue clear liquid diet Total time spent with patient discussing and formulating plan of care: 35 minutes. This medical document was created using an electronic medical record system with [employer] dictation system. Although this document has been carefully reviewed, there may still be some phonetic and typographical errors. These areas are purely typographical due to imperfections of the software programs, and do not reflect any compromise in the patient's medical care. Plan discussed with: Patient, Daughter, Other (RN) My Orders Orders - PATITO NAILS NP Procedure Category Date Status Time Ct Ab Pel With Iv Con CT 10/07/24 Resulted Only 16:45 Date of Service: Oct 08, 2024 Billing Provider: PATITO NAILS NP Common Visit Codes: [id number] INP/OBS CARE(HIGH) PATITO NAILS NP Oct 08, 2024 13:48
[2024-10-08 14:26] LABS: Erythrocyte Sedimentation Rate 3 mm/hr (0-20)
[2024-10-08] MEDS: metroNIDAZOLE 500MG/100ML 100 ML IV SCH (14:36)
--- NOTE | 2024-10-08 22:56 | DVHINCON2 ---
Date of service: Oct 08, 2024 Referring Physician Arthur Smith Reason for Consultation Epigastric pain History of Present Illness The patient is a 39-year-old male with past medical history of gallstones who presented to [facility] ED with complaint of acute abdominal pain. Patient reports symptoms progressively get worse with localized epigastric abdominal pain, right upper quadrant pain, associated nausea, vomiting, getting worse today that prompted this visit. Patient reports he has been diagnosed to have gallstones, has been having abdominal pain for the past 1-1/2 months. Patient was seen and evaluated in the ED, laboratory data shows WBC 15.1, platelets 265, sodium 144, potassium 3.4, BUN 26, creatinine 1.10, glucose 116, total bilirubin 2.5, AST 130, ALT 88, blood pressure 119/77, heart rate 70, temperature 97.9 F, O2 saturation 99% on room air. Gallbladder ultrasound revealing unremarkable appearance of the gallbladder; borderline hepatic steatosis. Please see medication orders section in the computer. On my assessm ent, patient denied chest pain, no headache, no dizziness, no diaphoresis, no shortness of breath, no abdominal pain, nausea or vomiting at this moment, no fever, no chills. No other modifying factor or other associated signs and symptoms noted. Patient was admitted for further evaluation and medical management. Past Medical History Past Medical History Gallstones Past Surgical History Past Surgical History Right ankle surgery Family History: Patient reports no known family medical history. Allergies: Coded Allergies: NO KNOWN ALLERGIES (Unverified , 10/07/24) Current Medications Current Medications Medications (Trade) Dose Ordered Sig/Billy Route PRN Reason Start Time Stop Time Status Last Admin Ceftriaxone Sodium 50 ml @ 100 mls/hr DAILY@0600 IV 10/08/24 06:00 10/08/24 05:46 Metronidazole 100 ml @ 100 mls/hr Q8HR IV 10/08/24 14:00 10/08/24 21:37 Vital Signs Vital Signs Date Time Temp Pulse Resp B/P (MAP) Pulse Ox O2 Delivery O2 Flow Rate FiO2 10/08/24 21:00 98.0 62 18 116/80 (92) 98 98.0 10/08/24 20:00 Room Air* 0 21 Physical Exam General Appearance: Alert, Oriented X3, Cooperative, No acute distress HEENT: Atraumatic, PERRLA, EOMI, Mucous membr. moist/pink Respiratory: Clear to auscultation, Normal air movement Cardiovascular: Regular rate, Normal S1, Normal S2, No murmurs Abdominal: Normal bowel sounds, Soft, No hepatospenomegaly, No masses,Mild tenderness) Extremities: No clubbing, No cyanosis, No edema, Normal pulses, No tenderness/swelling Skin: No rashes, No breakdown, No significant lesion Neuro: Normal gait, Normal speech, Strength at 5/5 X4 ext, Normal tone, Psych/Mental Status: Mental status NL, Mood NL Labs/Diagnostic Data Labs Test 10/08/24 06:08 10/07/24 00:17 10/06/24 23:55 Range/Units White Blood Count 5.3 # 4.4-10.8 10^3/uL Red Blood Count 4.27 L 4.5-5.90 10^6/uL Hemoglobin 14.4 13.5-17.5 g/dL Hematocrit 40.2 L 41.0-53.0 % Mean Corpuscular Volume 94.2 80.0-100.0 fL Mean Corpuscular Hemoglobin 33.8 H 28.0-32.0 pg Mean Corpuscular Hemoglobin Concent 35.9 32.0-36.0 g/dL Red Cell Distribution Width 13.3 11.8-14.3 % Platelet Count 236 140-450 10^3/uL Mean Platelet Volume 7.8 6.9-10.8 fL Neutrophils (%) (Auto) 41.7 37.0-80.0 % Lymphocytes (%) (Auto) 46.7 10.0-50.0 % Monocytes (%) (Auto) 9.5 0.0-12.0 % Eosinophils (%) (Auto) 1.3 0.0-7.0 % Basophils (%) (Auto) 0.8 0.0-2.0 % Neutrophils # (Auto) 2.2 1.6-8.6 10 ^3/uL Lymphocytes # (Auto) 2.5 0.4-5.4 10 ^3/uL Monocytes # (Auto) 0.5 0-1.3 10 ^3/uL Eosinophils # (Auto) 0.1 0-0.8 10 ^3/uL Basophils # (Auto) 0 0-0.2 10 ^3/uL Nucleated Red Blood Cells 0.1 % Erythrocyte Sedimentation Rate 3 0-20 mm/hr Sodium Level 142 136-145 mmol/L Potassium Level 3.8 3.5-5.1 mmol/L Chloride Level 108 H 98-107 mmol/L Carbon Dioxide Level 27 20-31 mmol/L Anion Gap 7 5-15 Blood Urea Nitrogen 12 # 9-23 mg/dL Creatinine 0.92 0.700-1.30 mg/dL Glomerular Filtration Rate Calc 107 >90 mL/min BUN/Creatinine Ratio 13.0 10.0-20.0 Serum Glucose 105 74-106 mg/dL Calcium Level 9.3 8.7-10.4 mg/dL Total Bilirubin 3.2 H 0.2-1.0 mg/dL Aspartate Amino Transferase (AST) 88 H 13-40 U/L Alanine Aminotransferase (ALT) 252 H 7-40 U/L Alkaline Phosphatase 62 46-116 U/L C-Reactive Protein High Sensitivity 0.37 <1.0 mg/dL Total Protein 6.7 5.7-8.2 g/dL Albumin 4.0 3.2-4.8 g/dL Lipase 51 12-53 U/L Urine Color Yellow Yellow Urine Clarity Clear Clear Urine pH 7.0 5.0-9.0 Urine Specific [place] 1.032 1.001-1.035 Urine Protein Trace H Negative Urine Ketones Trace Negative Urine Blood Negative Negative /uL Urine Nitrite Negative Negative Urine Bilirubin Negative Negative Urine Urobilinogen 6 Negative mg/dL Urine Leukocyte Esterase Negative Negative /uL Urine RBC 1 0 - 3 /hpf Urine WBC <1 0 - 3 /hpf Urine Squamous Epithelial Cells Few <5 /hpf Urine Bacteria None seen None Seen /hpf Urine Mucus Few None Seen Urine Glucose Normal Normal mg/dL Microbiology Date/Time Source Procedure Growth Status 10/07/24 06:23 Blood Blood Culture - Preliminary NO GROWTH AFTER 24 HOURS OF INCU[address]ATION. Resulted CT SCAN ABD PELVIS IMPRESSION: 1. Suspect small calculi in the gallbladder. No evidence of choledocholithiasis. Mildly prominent loops of small bowel proximally could represent enteritis or ileus. Clinical correlation and continued follow-up is recommended. Subcentimeter right renal cyst. GB USG IMPRESSION: 1. Unremarkable appearance of the gallbladder. 2. Borderline hepatic steatosis Problems(with codes): (1) Leukocytosis, unspecified (2) Elevated liver enzymes (3) Intractable abdominal pain Plan/Recommendation Plan Persistent abdominal pain elevated liver enzymes suspicious for possible choledocholithiasis or cholecystitis Check panel Order MRCP NPO after midnight to discuss possible endoscopic evaluation if required Plan discussed with: Other (None) TD QUIÑONEZ MD Oct 08, 2024 22:56
[2024-10-09] VITALS (7 sets, daily range): BP systolic 93–164; BP diastolic 55–87; PULSE 53–63; RESP 12–18; TEMP 97.9–98.3; O2SAT 96–99
[2024-10-09] MEDS ORDERED: fentaNYL CITRATE 100 MCG/2 ML VL ONE (08:21)
[2024-10-09] MEDS ORDERED: MIDAZOLAM HCL 2MG/2ML 2ml VIAL (1mg/ml) ONE (08:22)
[2024-10-09] MEDS ORDERED: ONDANSETRON HCL 4 MG/2 ML VIAL ONE (08:22)
[2024-10-09] MEDS ORDERED: GLYCOPYRROLATE 0.2 MG/ML 1ML VIAL ONE (08:22)
[2024-10-09] MEDS ORDERED: PROPOFOL 10 MG/ML 20 ML IV ONE (08:22)
--- NOTE | 2024-10-09 09:09 | DVHOP2 ---
Operative Report DATE OF OPERATION: 10/09/24 PROCEDURE: Upper Endoscopy with biopsy and snare polypectomy. PREOPERATIVE INDICATION: The patient is a 39 -year-old male undergoing endoscopy for epigastric and atypical chest pain POSTOPERATIVE DIAGNOSES: 1. Slightly irregular squamocolumnar junction but no significant hiatal hernia or esophagitis 2. Mild gastritis 3. Multiple benign-appearing gastric fundic polyps were seen and removed by snar e polypectomy and several samples were removed for pathology PROCEDURE PERFORMED BY: Td Dickinson GI NURSE: Carley SCOPE: Olympus videoendoscope. ASA CLASS: 2. PREOPERATIVE MEDICATIONS: Mac sedation, Dr. Taylor PROCEDURE IN DETAIL: After obtaining an informed consent, the patient was placed on left lateral decubitus position. The patient was then sedated with the above medications. A bite block was placed between his teeth. The endoscope was then passed through the oropharynx, into the esophagus, and through the stomach and pylorus up to the second and third part of the duodenum. The endoscope was then withdrawn. The 2nd and 3rd part of the duodenal and the duodenal bulb were normal. Duodenal biopsies were obtained. The pre-pyloric area antrum and body showed mild gastritis. Gastric biopsies were obtained. There was a pre-pyloric antral gastric erosion inflammatory polyp that was also removed with the gastric biopsies On retroflexion and straight on view the patient had multiple benign-appearing gastric fundic polyps Several were removed via snare polypectomy and some of the samples were retrieved for pathologic analysis The endoscope was then withdrawn into the distal esophagus where the patient had a slightly irregular squamocolumnar junction. Patient there was no significant hiatal hernia or esophagitis. The remaining distal and proximal esophagus and oropharynx were unremarkable The patient tolerated the procedure well without difficulty. COMPLICATIONS : None SPECIMENS: Duodenal biopsies Gastric biopsies Gastric polyps DISPOSITION: Transfer back to the floor Stable PLAN: 1. Await for biopsy result 2. Will place pt on Protonix 40 mg p.o. twice a day 3. Carafate 1 g p.o. twice a day 4. Full liquid diet advance to soft mechanical 5. Monitor labs and continue conservative observation for now 6. Liver enzymes are trending down, patient may have passed a small stone, patient is not able to do MRCP because of metal in his body 7. If the symptoms recur or if liver enzymes remain persistently elevated then an outpatient elective ERCP is to be considered TD DICKINSON MD Oct 09, 2024 09:09
[2024-10-09] MEDS: SUCRALFATE 1 GM/10 ML ORAL SUSP PO SCH (11:52)
--- NOTE | 2024-10-09 13:36 | DVHPN2 ---
Subjective Patient continues to complain of epigastric and right upper quadrant pain. Reviewed: Care Plan, H&P, Labs, Medications Changes from previous H/P or p: No Changes General: Per HPI Eyes: No Pain, No Vision change, No Conjunctivae inflammation, No Eyelid inflammation, No Other, No Redness ENT: No Ear pain, No Ear discharge, No Nose pain, No Nose discharge, No Nose congestion, No Mouth pain, No Mouth swelling, No Throat pain, No Throat swelling, No Other Cardiovascular: No Chest Pain, No Palpitations, No Orthopnea, No Paroxysmal Noc. Dyspnea, No Edema, No Lt Headedness, No Other Respiratory: No Cough, No Dry, No Shortness of breath, No SOB with excertion, No Wheezing, No Hemoptysis, No Pleuritic Pain, No Sputum, No Other Gastrointestinal: Nausea, Vomiting, Abdominal Pain; No Diarrhea, No Constipation, No Melena, No Hematochezia, No Other Genitourinary: No Dysuria, No Frequency, No Incontinence, No Hematuria, No Retention, No Other Musculoskeletal: No other, No neck pain, No shoulder pain, No arm pain, No back pain, No hand pain, No leg pain, No foot pain Skin: No Rash, No Lesions, No Jaundice, No Bruising, No Other Objective Vitals Vital Signs Date Time Temp Pulse Resp B/P (MAP) Pulse Ox O2 Delivery O2 Flow Rate FiO2 10/09/24 13:00 97.9 63 16 127/86 (100) 97 97.9 10/09/24 08:53 Room Air 0 99 Intake/Output Intake and Output 10/09/24 07:00 Intake Total 1600 ml Balance 1600 ml Intake Oral 1400 ml IV Total 200 ml # Voids 4 General Appearance: Alert, Oriented X3, Cooperative, mild distress HEENT: Atraumatic, PERRLA Lungs: Clear to auscultation, Normal air movement Cardiovascular: Normal S1, Normal S2 Abdomen: Normal bowel sounds, Soft, No tenderness Genitourinary: No Apparent Abnormalities Musculoskeletal: Normal sensory function, Normal motor function Extremities: No clubbing, No cyanosis Neuro: Normal gait, Normal speech Psych/Mental Status: Mental status NL, Mood NL Medications Current Medications Medications Dose Ordered Sig/Billy Route Start Time Stop Time Status Last Admin Dose Admin Pantoprazole Sodium 40 mg DAILY IV 10/07/24 10:00 10/09/24 11:52 40 MG Ceftriaxone Sodium 50 ml @ 100 mls/hr DAILY@0600 IV 10/08/24 06:00 10/09/24 06:03 100 MLS/HR Ibuprofen 600 mg Q6HP PRN PO 10/07/24 06:15 Sodium Chloride 10 ml Q8HR IV 10/07/24 14:00 10/09/24 06:04 10 ML Acetaminophen/ Hydrocodone Bitart 1 tab Q4HP PRN PO 10/07/24 06:15 10/08/24 19:57 1 TAB Ondansetron HCl 4 mg Q4HP PRN IV 10/07/24 06:15 Docusate Sodium 100 mg BIDPRN PRN PO 10/07/24 06:15 Morphine Sulfate 2 mg Q4HPRN PRN IV 10/07/24 06:15 Nitroglycerin 0.4 mg Q5MINP PRN SL 10/07/24 06:45 Morphine Sulfate 2 mg Q30M PRN IV 10/07/24 06:45 Metronidazole 100 ml @ 100 mls/hr Q8HR IV 10/08/24 14:00 10/09/24 06:03 100 MLS/HR Sucralfate 1 gm QID@0600,1130,1700,2200 PO 10/09/24 11:30 10/09/24 11:52 1 GM Laboratory Results Laboratory Tests 10/08/24 06:08 Urinalysis Test 10/06/24 23:55 Urine Color Yellow (Yellow) Urine Clarity Clear (Clear) Urine pH 7.0 (5.0-9.0) Urine Specific [place] 1.032 (1.001-1.035) Urine Protein Trace (Negative) H Urine Ketones Trace (Negative) Urine Blood Negative /uL (Negative) Urine Nitrite Negative (Negative) Urine Bilirubin Negative (Negative) Urine Urobilinogen 6 mg/dL (Negative) Urine Leukocyte Esterase Negative /uL (Negative) Urine RBC 1 /hpf (0 - 3) Urine WBC <1 /hpf (0 - 3) Urine Squamous Epithelial Cells Few /hpf (<5) Urine Bacteria None seen /hpf (None Seen) Urine Mucus Few (None Seen) Urine Glucose Normal mg/dL (Normal) Microbiology Microbiology Date/Time Source Procedure Growth Status 10/07/24 06:23 Blood Blood Culture - Preliminary NO GROWTH AFTER 48 HOURS OF INCUBATION. Resulted Labs and/or images reviewed: Labs reviewed by me, Image(s) reviewed by me Assessment/Plan Assessment/Plan Impression: -rule out choledocholithiasis -transaminitis -patient reports history of cholelithiasis -leukocytosis, probable sirs Plan: Events: Patient is status post EGD today. Discussed findings with patient and family. Patient continues to have epigastric pain. -GI consultation : Recommendations reviewed -antibiotic therapy: Add Flagyl, continue Rocephin -check inflammatory markers for inflammatory bowel disease: Within normal limits -pain management -advanced to full liquid diet -repeat labs in Total time spent with patient discussing and formulating plan of care: 35 minutes. This medical document was created using an electronic medical record system with [employer]iao qu [employer] dictation system. Although this document has been carefully reviewed, there may still be some phonetic and typographical errors. These areas are purely typographical due to imperfections of the software programs, and do not reflect any compromise in the patient's medical care. Plan discussed with: Patient, Other (RN) My Orders Orders - PATITO NAILS NP Procedure Category Date Status Time Metronidazole PHA 10/08/24 In Process 500mg/100ml (Flagyl 14:00 * Gi [facility] [employer] Hand CONS 10/08/24 Transmitted 13:44 Hemoglobin & LAB 10/10/24 Verified Hematocrit 04:00 Date of Service: Oct 09, 2024 Billing Provider: PATITO NAILS NP Common Visit Codes: 58461-[id number] INP/OBS CARE(HIGH) PATITO NAILS NP Oct 09, 2024 13:36
[2024-10-10 05:00] VITALS: BP_SYST 111; PULSE 70; RESP 18; TEMP 97.7; O2SAT 97
[2024-10-10 05:20] LABS: Hematocrit 44.1 % (41.0-53.0); Hemoglobin 15.7 g/dL (13.5-17.5)
[2024-10-10 05:47] LABS: Alanine Aminotransferase 139 U/L (7-40); Albumin 4.2 g/dL (3.2-4.8); Alkaline Phosphatase 60 U/L (46-116); Anion Gap 7 (5-15); Aspartate Aminotransferase 20 U/L (13-40); BUN/Creatinine Ratio 9.3 (10.0-20.0); Bilirubin, Total 2.3 mg/dL (0.2-1.0); Blood Urea Nitrogen 10 mg/dL (9-23); Calcium 9.6 mg/dL (8.7-10.4); Carbon Dioxide 27 mmol/L (20-31); Chloride 107 mmol/L (98-107); Glucose 103 mg/dL (74-106); Lipase 54 U/L (12-53); Potassium 3.6 mmol/L (3.5-5.1); Sodium 141 mmol/L (136-145); Total Protein 6.8 g/dL (5.7-8.2)
[2024-10-10 08:00] VITALS: BP 104/71; PULSE 65; RESP 18; TEMP 97.7; O2SAT 99
[2024-10-10 09:07] LABS: Hepatitis B Core Total AB Negative (Negative)
[2024-10-10 09:30] LABS: Hepatitis A Ab IgM Negative; Hepatitis A Total Antibody Positive (Negative); Hepatitis B Core IgM Negative; Hepatitis B Surface Antibody Negative (Negative); Hepatitis B Surface Antigen Negative (Negative); Hepatitis C Antibody Negative (Negative)
[2024-10-10] MEDS ORDERED: SUCR1TAB31 OR (11:47)
[2024-10-10] MEDS ORDERED: PANT40TA2 PO (11:47)
[2024-10-10] MEDS ORDERED: METR-344 PO (11:47)
[2024-10-10] MEDS ORDERED: TRAM50TA2 PO (11:54)
--- NOTE | 2024-10-10 11:54 | DVHDS2 ---
Discharge Summary Date of Admission Oct 07, 2024 at 06:40 Date of Discharge: Oct 10, 2024 Admitting Diagnosis Intractable abdominal pain Labs/Diagnostic Data: Laboratory Results Test 10/10/24 05:07 10/09/24 04:45 10/08/24 06:08 10/06/24 23:55 Hemoglobin 15.7 g/dL (13.5-17.5) Hematocrit 44.1 % (41.0-53.0) Sodium Level 141 mmol/L (136-145) Potassium Level 3.6 mmol/L (3.5-5.1) Chloride Level 107 mmol/L (98-107) Carbon Dioxide Level 27 mmol/L (20-31) Anion Gap 7 (5-15) Blood Urea Nitrogen 10 mg/dL (9-23) Creatinine 1.07 mg/dL (0.700-1.30) Glomerular Filtration Rate Calc 89 mL/min (>90) BUN/Creatinine Ratio 9.3 (10.0-20.0) Serum Glucose 103 mg/dL (74-106) Calcium Level 9.6 mg/dL (8.7-10.4) Total Bilirubin 2.3 mg/dL (0.2-1.0) Aspartate Amino Transferase (AST) 20 U/L (13-40) Alanine Aminotransferase (ALT) 139 U/L (7-40) Alkaline Phosphatase 60 U/L (46-116) Total Protein 6.8 g/dL (5.7-8.2) Albumin 4.2 g/dL (3.2-4.8) Lipase 54 U/L (12-53) Hepatitis A IgM Antibody Negative Hepatitis A Antibody Total Positive (Negative) Hepatitis B Surface Antigen Negative (Negative) Hepatitis B Surface Antibody Negative (Negative) Hepatitis B Core Total Antibody Negative (Negative) Hepatitis B Core IgM Antibody Negative Hepatitis C Antibody Negative (Negative) White Blood Count 5.3 10^3/uL (4.4-10.8) Red Blood Count 4.27 10^6/uL (4.5-5.90) Mean Corpuscular Volume 94.2 fL (80.0-100.0) Mean Corpuscular Hemoglobin 33.8 pg (28.0-32.0) Mean Corpuscular Hemoglobin Concent 35.9 g/dL (32.0-36.0) Red Cell Distribution Width 13.3 % (11.8-14.3) Platelet Count 236 10^3/uL (140-450) Mean Platelet Volume 7.8 fL (6.9-10.8) Neutrophils (%) (Auto) 41.7 % (37.0-80.0) Lymphocytes (%) (Auto) 46.7 % (10.0-50.0) Monocytes (%) (Auto) 9.5 % (0.0-12.0) Eosinophils (%) (Auto) 1.3 % (0.0-7.0) Basophils (%) (Auto) 0.8 % (0.0-2.0) Neutrophils # (Auto) 2.2 10 ^3/uL (1.6-8.6) Lymphocytes # (Auto) 2.5 10 ^3/uL (0.4-5.4) Monocytes # (Auto) 0.5 10 ^3/uL (0-1.3) Eosinophils # (Auto) 0.1 10 ^3/uL (0-0.8) Basophils # (Auto) 0 10 ^3/uL (0-0.2) Nucleated Red Blood Cells 0.1 % Erythrocyte Sedimentation Rate 3 mm/hr (0-20) C-Reactive Protein High Sensitivity 0.37 mg/dL (<1.0) Urine Color Yellow (Yellow) Urine Clarity Clear (Clear) Urine pH 7.0 (5.0-9.0) Urine Specific [place] 1.032 (1.001-1.035) Urine Protein Trace (Negative) Urine Ketones Trace (Negative) Urine Blood Negative /uL (Negative) Urine Nitrite Negative (Negative) Urine Bilirubin Negative (Negative) Urine Urobilinogen 6 mg/dL (Negative) Urine Leukocyte Esterase Negative /uL (Negative) Urine RBC 1 /hpf (0 - 3) Urine WBC <1 /hpf (0 - 3) Urine Squamous Epithelial Cells Few /hpf (<5) Urine Bacteria None seen /hpf (None Seen) Urine Mucus Few (None Seen) Urine Glucose Normal mg/dL (Normal) Other Laboratory Tests 10/10/24 05:07 10/08/24 06:08 Brief Hx & Hospital Course: History of Present Illness The patient is a 39-year-old male with past medical history of gallstones who presented to [facility] ED with complaint of acute abdominal pain. Patient reports symptoms progressively get worse with localized epigastric abdominal pain, right upper quadrant pain, associated nausea, vomiting, getting worse today that prompted this visit. Patient reports he has been diagnosed to have gallstones, has been having abdominal pain for the past 1-1/2 months. Patient was seen and evaluated in the ED, laboratory data shows WBC 15.1, platelets 265, sodium 144, potassium 3.4, BUN 26, creatinine 1.10, glucose 116, total bilirubin 2.5, AST 130, ALT 88, blood pressure 119/77, heart rate 70, temperature 97.9 F, O2 saturation 99% on room air. Gallbladder ultrasound revealing unremarkable appearance of the gallbladder; borderline hepatic steatosis. Please see medication orders section in the computer. On my assessment, patient denied chest pain, no headache, no dizziness, no diaphoresis, no shortness of breath, no abdominal pain, nausea or vomiting at this moment, no fever, no chills. No other modifying factor or other associated signs and symptoms noted. Patient was admitted for further evaluation and medical management. Course of hospitalization: Patient was noted to have increased LFTs. Patient has multiple metal fragments in his right thorax, with the patient unable to undergo MRCP. Ultrasound of the gallbladder was negative for any stones. Patient did have CT of abdomen and pelvis with IV contrast which did not appreciate choledocholithiasis. Patient was found to have enteritis. The patient continued to have epigastric pain. GI consultation was obtained. Patient underwent upper endoscopy yesterday with gastric polypectomy, as well as notation of his gastritis. Patient was placed on PPI and Carafate. He was also treated with IV antibiotic therapy with Flagyl and Rocephin. The patient was agreeable to be discharged home today and follow up with the discharge Clinic in one week as well as Dr. Nguyễn Dickinson in 2-3 weeks to obtain biopsy results. He will be continued on both Protonix and Carafate at the time of discharge. He will also be given a five day course of Flagyl. For pain not alleviated with [id number] Tylenol, the patient will take tramadol 50 mg p.o. every 12 hours as needed. It is also noted that the patient's LFTs have improved. Possibly passing of CBD stone while in the hospital. This was all discussed with the patient and family. All questions answered. Physical exam General: Alert and Oriented x3. No acute distress. Well-nourished. Eyes: EOMI. Anicteric. HENT: Moist mucous membranes. Lungs: Clear to auscultation bilaterally. No accessory muscle use. Cardiovascular: Regular rate and rhythm. No murmur. No JVD. Abdomen: Soft, non-tender and non-distended. No palpable masses. Extremities: No edema. Non-tender. Skin: No rashes or lesions. Warm. Neurologic: No focal neurological deficits. CN II-XII grossly intact, but not individually tested. Psychiatric: Cooperative. Appropriate mood and affect. Total time spent with patient discussing and formulating plan of care: 35 minutes. This medical document was created using an electronic medical record system with [employer] dictation system. Although this document has been carefully reviewed, there may still be some phonetic and typographical errors. These areas are purely typographical due to imperfections of the software programs, and do not reflect any compromise in the patient's medical care. Consults/Reason for consult Gastroenterology: Epigastric pain Operations or Procedures 10/09/2024: EGD with biopsy Condition at Discharge: Fair Final Diagnosis/Problems List Abdominal pain secondary to enteritis, transaminitis, questionable gallbladder disease Secondary Diagnosis: -ruled out choledocholithiasis -transaminitis -patient reports history of cholelithiasis -leukocytosis, probable sirs -enteritis -gastric polyp Discharge Disposition: Home Discharge Instruct/Medications Diet: Regular Activity: No Restrictions, As Tolerated Medications: Protonix 40 mg p.o. b.i.d. times 30 days Flagyl 500 mg p.o. 3 times a day for five days Tramadol 50 mg p.o. q.12 hours needed for [id number] pain Carafate 1 g tablet b.i.d. 30 36 Discharge Statement: "Patient was advised to return to the ER or call 911 if any headaches, dizziness, shortness of breath, chest pain, abdominal pain, bleeding, fevers, or worsening of medical condition. Patient was counseled about treatment plan, medications, possible side effects, patientverbalized understanding. All questions were answered to the best of my ability. This discharge took greater then 30 minutes in planning, reviewing documentation, counseling the patient, and discussing with other team members." ASSESSMENT ASSESSMENT Assessment Abdominal pain secondary to enteritis, transaminitis, questionable gallbladder disease Date of Service: Oct 10, 2024 Billing Provider: PATITO NAILS NP Common Visit Codes: 05304-BHZ/OBS DISCH DAY >30min PATITO NAILS NP Oct 10, 2024 11:54
[2024-10-10 12:00] VITALS: BP 114/73; PULSE 69; RESP 18; TEMP 97.8; O2SAT 97
== END 2024-10-10 15:40 | disposition home or self-care (01) | DRG 248 ==
LOC: ER 23:27 → OVERFLOW 10-07 06:40 → WEST WING 10-08 01:25
PROVIDERS: ADMIT Nurse Practitioner Family; ATTEND Nurse Practitioner Acute Care
PROC: 0DB98ZX Excision of Duodenum, Via Natural or Artificial Opening Endoscopic, Diagnostic (ICD-10-PCS; 2024-10-09)
PROC: 0DB68ZZ Excision of Stomach, Via Natural or Artificial Opening Endoscopic (ICD-10-PCS; 2024-10-09)
PROC: 0DB68ZX Excision of Stomach, Via Natural or Artificial Opening Endoscopic, Diagnostic (ICD-10-PCS; principal; 2024-10-09 08:29)
DX: A04.9 Bacterial intestinal infection, unspecified (principal); K76.0 Fatty (change of) liver, not elsewhere classified; E87.6 Hypokalemia; K25.9 Gastric ulcer, unspecified as acute or chronic, without hemorrhage or perforation; K31.7 Polyp of stomach and duodenum
CPT/HCPCS: 36415; 71046; 74177; 76705; 80053; 80074; 81001; 83690; 85014; 85018; 85025; 85652; 86141; 86704; 86706; 86708; 86803; 87040; 87340; 96361; 96374; 96375; G0378; J2250; J2405; J2470; J2704; J3490